=== PATIENT | female | born 1995 | race Caucasian/White ===

== ENCOUNTER 2018-07-05 15:55 | Observation (INO) ==
[2018-07-05 17:01] LABS: Amphetamine Screen,Urine Negative ng/mL (Cutoff=1000); Barbiturate Screen,Urine Negative ng/mL (Cutoff=200); Benzodiazepines Screen,Urine Negative ng/mL (Cutoff=200); Cannabinoid Screen,Urine Negative ng/mL (Cutoff = 50); Cocaine Screen,Urine Negative ng/mL (Cutoff= 300); Opiate Screen,Urine Negative ng/mL (Cutoff=300); Phencyclidine Screen,Urine Negative ng/mL (Cutoff=25)
--- NOTE | 2018-07-05 21:26 | OB/GYN Progress Note ---
Date of Encounter: 07/05/18 Time of Encounter: 18:40 - Assessment and Plan (1) 38 weeks gestation of Current Visit: Yes Status: Acute (2) False labor after 37 weeks of gestation without delivery Current Visit: Yes Status: Acute Patient was seen and evaluated by RN. No change from exam earlier today. Allowed to ambulate with re-exam in 1 hour and still no cervical change. FHTs category 1 and reactive. Discharged home. Objective - Vital Signs Vital Signs: Intake and Output 07/05/18 07/05/18 07/05/18 07:59 15:59 23:59 Other: Weight 65.8 kg Patient Weight 07/05/18 23:59 Weight 65.8 kg
== END 2018-07-05 18:41 | disposition home or self-care (01) ==
LOC: 1NENULAB
PROVIDERS: ADMIT Advanced Practice Midwife; ATTEND Advanced Practice Midwife

== ENCOUNTER 2018-07-07 16:54 | Observation (INO) ==
[2018-07-07 18:07] LABS: Amphetamine Screen,Urine Negative ng/mL (Cutoff=1000); Barbiturate Screen,Urine Negative ng/mL (Cutoff=200); Benzodiazepines Screen,Urine Negative ng/mL (Cutoff=200); Cannabinoid Screen,Urine Negative ng/mL (Cutoff = 50); Cocaine Screen,Urine Negative ng/mL (Cutoff= 300); Opiate Screen,Urine Negative ng/mL (Cutoff=300); Phencyclidine Screen,Urine Negative ng/mL (Cutoff=25)
--- NOTE | 2018-07-07 21:39 | OB/GYN Progress Note ---
Date of Encounter: 07/07/18 Time of Encounter: 21:36 - Assessment and Plan (1) 38 weeks gestation of Current Visit: No Status: Acute NST reactive, FHR baseline 145 bpm. Discharge home with precautions. (2) False labor after 37 weeks of gestation without delivery Current Visit: No Status: Acute Cervix unchanged after 3-4 hours . Discharged home with precautions. Subjective - Subjective Principal diagnosis: Contractions Interval history: A 23 y/o at 38w6d presented with c/o contractions that began at 1pm. Denies LOF or VB. Reports good FM. Antepartum ROS: new complaints, movement normal, contractions, no loss of fluid, no vaginal bleeding Objective - Vital Signs Vital Signs: Intake and Output 07/07/18 07/07/18 07/07/18 07:59 15:59 23:59 Other: Weight 519.817 kg Patient Weight 07/07/18 23:59 Weight 519.817 kg - Exam FHR: category 1 FHR comments: NST reactive, FHR baseline 145bpm Auscultation: bilateral: normal Abdomen: Present: soft, gravid Cervical dilation: 4cm Cervix effacement: 80% station: -1 Comments: Cervix unchanged after 3-4 hours.
== END 2018-07-07 21:35 | disposition home or self-care (01) ==
LOC: 1NENULAB
PROVIDERS: ADMIT Registered Nurse; ATTEND Registered Nurse

== ENCOUNTER 2018-07-12 05:47 | Inpatient (IN) ==
[2018-07-12] MEDS ORDERED: Lidocaine -MPF 1% 5 ML AMPUL INFILT PRN (05:52)
[2018-07-12] MEDS ORDERED: Famotidine 20 MG/2 ML VIAL IVP PRN (05:52)
[2018-07-12] MEDS ORDERED: Metoclopramide 10 MG/2 ML VIAL IVP PRN (05:52)
[2018-07-12] MEDS ORDERED: Ondansetron 4 MG/2 ML VIAL IVP PRN (05:52)
[2018-07-12] MEDS ORDERED: Naloxone 0.4 MG/ML INJ IVP PRN (05:52)
[2018-07-12] MEDS ORDERED: *HR* Nalbuphine 10 MG/ML AMPUL IVP PRN (05:52)
[2018-07-12] MEDS ORDERED: Ringers Solution, Lactated 1,000 ML IVC SCH (06:00)
--- NOTE | 2018-07-12 06:23 | OB/GYN History & Physical ---
Date of Encounter: 07/12/18 Time of Encounter: 06:17 Assessment and Plan (1) 39 weeks gestation of Current visit: Yes Status: Acute (2) Spontaneous onset of labor Current visit: Yes Status: Acute Admit to labor and delivery Nubain and epidural as desired GBS negative Anticipate History of Present Illness Chief complaint: contractions HPI: Ms. Rowe is a 23 year old female 39+4 days gestation presents to triage with complaints of contractions since 3 AM. Patient reports good movement, denies vaginal bleeding or leaking of fluid. care with Dr. Mendez, complicated with asthma, uses inhaler 2-3 times a week last 2 days ago, and genital herpes, patient on Valtrex. Labs: A+, rubella and varicella immune, GBS negative, all other serologies negative Past Med Surg Social Fam HX - Past Medical History Medical history: asthma, migraine Psychiatric history: anxiety, depression, other - Past Surgical History Surgical History: other Additional surgical history: reconstruction on right shoulder - Social History Smoking Status: Current every day smoker Packs per day: half Smokeless Tobacco Status: No Alcohol use: none Drug use: none - Family History Sister Family Member Ethnicity: Non- Living Status: Still Living Hx Family Cardiac Disorders: No Hx Family Respiratory Disorders: No Hx Family Cancer: No Hx Family GI Disorders: No Hx Family Endocrine Disorder: No Hx Family Neuromuscular Disorders: No Hx Family Neurologic Disorders: No Hx Family HEENT Disorders: No Hx Family Autoimmune Disorders: No Mother Living Status: Still Living Hx Family Cardiac Disorders: Yes (HTN) Hx Family Respiratory Disorders: No Hx Family Cancer: No Hx Family GI Disorders: No Hx Family Genitourinary Disorders: No Hx Family Endocrine Disorder: Yes (DM) Hx Family Musculoskeletal Disorders: No Hx Family Neuromuscular Disorders: No Hx Family Neurologic Disorders: No Hx Family HEENT Disorders: No Hx Family Autoimmune Disorders: No Hx Family Reproductive Disorders: No Hx Family Psychosocial Disorders: No Hx Family Medical Disorders: No Obstetrical History - Pregnancies : 2 Para: 1 Term: 1 : 0 Ab's: 0 Livin Medications and Allergies Paxil 20 mg PO DAILY 07/07/18 [History] 3 Allergy/AdvReac Type Severity Reaction Status Date / Time Amoxicillin Allergy Hives Verified 07/05/18 16:16 Cefaclor [From Ceclor] Allergy Hives Verified 07/05/18 16:16 Cefprozil [From Cefzil] Allergy Hives Verified 07/05/18 16:16 Erythromycin Base Allergy Hives Verified 07/05/18 16:16 [From E-Mycin] Exam - Constitutional Constitutional: well developed, well nourished, no acute distress, average body habitus - Neck Neck exam: full ROM - Lungs Respiratory exam: CTAB - Cardiovascular Cardiovascular exam: RRR - Abdomen Abdomen: Present: gravid, non tender - Extremities Extremities exam: normal capillary refill, normal inspection - Cervix Dilation: 5 Effacement: 100 Station: -1 - Anus/Rectum Anus/Rectum: Present: normal perianal skin Results All other labs normal. - VTE Reasons for not Prescribing Prophylaxis: Treatment not Indicated - Low risk for VTE
[2018-07-12 06:29] LABS: Basophils # 0.1 K/mcL (0.0-0.2); Basophils % 0.3 %; Eosinophils # 0.1 K/mcL (0.0-0.6); Eosinophils % 0.6 %; Hematocrit 32.8 % (35.3-44.9); Immature Granulocytes % 0.6 % (0-4); Lymphocytes # 4.9 K/mcL (0.6-4.6); Lymphocytes % 22.8 %; Mean Corpuscular HGB Conc 33.5 g/dL (31.6-35.5); Mean Corpuscular Hemoglobin 30.9 pg (28.0-33.3); Mean Corpuscular Volume 92.1 fL (83.0-100.0); Mean Platelet Volume 10.8 fL (9.4-12.4); Monocytes # 1.2 K/mcL (0.0-1.3); Monocytes % 5.4 %; Platelet Count 265 K/mcL (140-400); Red Blood Count 3.56 M/mcL (3.82-4.97); Segmented Neutrophils % 70.3 %
[2018-07-12 06:31] LABS: Amphetamine Screen,Urine Negative ng/mL (Cutoff=1000); Barbiturate Screen,Urine Negative ng/mL (Cutoff=200)
[2018-07-12 06:32] LABS: Benzodiazepines Screen,Urine Negative ng/mL (Cutoff=300); Cannabinoid Screen,Urine Negative ng/mL (Cutoff = 50); Cocaine Screen,Urine Negative ng/mL (Cutoff= 300); Opiate Screen,Urine Negative ng/mL (Cutoff=300); Phencyclidine Screen,Urine Negative ng/mL (Cutoff=25)
[2018-07-12] MEDS ORDERED: Epidural Premix (fent/bupiv) 110 ML EP SCH (06:45)
[2018-07-12] MEDS ORDERED: Lidocaine 1% 20 ML MDV ONE (07:04)
[2018-07-12] MEDS ORDERED: Bupivacaine-MPF 0.25% 10 ML VIAL ONE (07:19)
[2018-07-12] MEDS ORDERED: *HR* FentaNYL (PF) 100 MCG/2 ML VIAL ONE (07:19)
--- NOTE | 2018-07-12 08:00 | Anesthesia Evaluation PreOp ---
Date of Encounter: 07/12/18 Time of Encounter: 06:55 - Past History Planned Operation: RAMO Cardiac History: Denies any Significant Hx Pulmonary History: Smoker, Pack/yr (5pk/yr) WORLD LANGUAGE TEACHER History: Denies Any Significant HX Other Medical History: Denies Any Significant HX, Other (anxiety, depression, herpes, HPV) Anesthesia History: No Prior Anesthetic Complications, Past Anesthesia ( reconstructive shoulder surgery) : Yes Alcohol Use: none Drug use: none Medications and Allergies Paxil 20 mg PO DAILY 07/07/18 [History] valACYclovir [Valtrex] 500 mg PO DAILY 07/12/18 [History] 3 Allergy/AdvReac Type Severity Reaction Status Date / Time Amoxicillin Allergy Hives Verified 07/05/18 16:16 Cefaclor [From Ceclor] Allergy Hives Verified 07/05/18 16:16 Cefprozil [From Cefzil] Allergy Hives Verified 07/05/18 16:16 Erythromycin Base Allergy Hives Verified 07/05/18 16:16 [From E-Mycin] - Meds/Allergy Pre-op Review Medications Reviewed: Yes Allergies Reviewed: Yes Beta Blockers on Current Med List: No Anesthesia Results - Labs 07/12/18 06:00 Anesthesia Exam BP 131/90 P 85 R 18 T 97.1 Height: 5'5" Weight: 65.8kg NPO (# of Hours): 11 Pain Scale: 7 Pain Scale Used: Numeric (1 - 10) - HEENT Pupil (Motor): Pupils equal Mallampati: II Teeth: Normal Oral Opening: Greater than 3 - WORLD LANGUAGE TEACHER LOC: Oriented WORLD LANGUAGE TEACHER Motor: Normal RUE, Normal LUE, Normal RLE, Normal LLE, Normal Face WORLD LANGUAGE TEACHER Sensory: Normal: RUE, LUE, RLE, LLE, Face - Cardiac Rhythm: Regular Murmur: None JVD: No Carotid Bruit: No - Pulmonary Breath Sounds: bilateral Clear Respiratory Effort: Symmetrical Anesthesia Assess/Plan ASA Score: 2 Modified Turrell Scale for Level of Consciousness: Cooperative, oriented, and tranquil Anesthetic Plan: Regional Autologous Blood: No Monitoring Plan: Standard Monitors Recovery Plan: Other
--- NOTE | 2018-07-12 08:12 | Anesthesia Procedures ---
Date of Encounter: 07/12/18 Time of Encounter: 06:55 Procedures: Anesthesia - Epidural/Spinal Patient ID/Chart reviewed: Yes Patient examined: Yes OB Eval: Gestational age: 39.4 OB Eval: : 2 OB Eval: Hx Para: 1 OB Eval: Dilated at (cm): 7 OB Eval: Contractions: Non-stressed pattern Consent Obtained: Yes Supplemental Oxygen: None/Room Air Site Prep: Aseptic Technique, Sterile prep and drape, Povidone-Iodine 1% Patient position: upright Local Anesthetic: Lidocaine 1% Amount of Local Anesthetic used: 3 Touhy Needle Gauge: 18 Touhy Needle Depth (cm): 5 Test Dose (1.5% Lido + Epi): Volume given (mls): 3 Test Dose Result: Negative Loading Dose: 0.25% Marcaine (mls): 7 Loading Dose: Fentanyl (mcg): 100 Loading Dose Administered: Thru Catheter Infusion Med: 0.125% Bupivacaine w/ 2 mcg/ml Fentanyl Infusion Rate (mls/hr): [address]: Tegaderm, Tape Interspace Used: L3-L4 Loss of Resistance (KAROLINE): Yes Blood: No CSF: No Paresthesia: No Procedure: RAMO placed 1st pass in upright position without any immediate noted complications. VSS and FHT stable throughout.
[2018-07-12] MEDS ORDERED: Oxytocin 20 units/ LR 1000 mL 20 UNIT/1,000 ML BAG IVC ONE (08:50)
--- NOTE | 2018-07-12 08:53 | OB Labor Progress Note ---
Date of Encounter: 07/12/18 Time of Encounter: 08:51 Labor Progress Note - Subjective Subjective: Patient comfortable after the epidural, but experiencing some nausea. - Cervix Cervix: 9/100/0 cephalic - Heart Tones Heart Tones: baseline 130, category 1 prior to AROM. Since AROM 2 contractions with variable decels noted. Good return to baseline and beat to beat variability - Vevay Vevay: q 3 minutes - Interventions Interventions: AROM with moderate amount of clear fluid noted - Plan Plan: Expectant management with EFM in anticipation of vaginal delivery. Repositioning as needed
--- NOTE | 2018-07-12 09:40 | OB/GYN Procedure Note ---
Delivery - Delivery Date: 07/12/18 Provider: Dianne Mendez Intrapartum events: none Delivery augmentation: rupture of membranes Delivery monitor: external FHT, external uterine Anesthesia: epidural Quantitated Blood Loss: 200 - Infant (s) A Delivery Date: 07/12/18 Delivery Time: 09:15 Presentation: vertex Position: KEVIN Route of delivery: Gender: Female Viability: Viable Pounds: 5 Ounces: 14 at 1 minute: 9 at 5 mins: 9 Shoulder Dystocia: not encountered Placenta: spontaneous Cord: nuchal cord, 3 umbilical vessels, delivered through nuchal - Repair Episiotomy: none Laceration Description: Periurethral, Labial (anterior) - Complications Delivery complications: none Delivery comments: Called to room with patient complete and +2 station. Under maternal effort she delivered a viable female weighing 5 lbs. 14 oz. and Apgars 9 and 9 at one and 5 minutes respectively over an intact perineum. Following delivery of the head and nuchal cord was noted that she delivered through. No shoulder dystocia was encountered. Following delivery of the the nuchal was reduced and the infant was placed on mom's abdomen vigorous and crying. Evaluation of the labia reveals a periurethral laceration as well as an anterior labial. Both lacerations were reapproximated using 3-0 Monocryl in an interrupted fashion. Hemostasis is assured. The cord was allowed to cease pulsations and then was double clamped and cut with assistance from the father of the baby. Placenta delivered spontaneously, complete, and intact with a three-vessel cord. There were no perineal, vagianl, or cervical lacerations on exam. Mother and infant are recovering in the LDR in stable condition. - Disposition Mom disposition: stable in LDR disposition: stable in LDR
[2018-07-12] MEDS ORDERED: Ibuprofen 600 MG TABLET PO PRN (12:12)
[2018-07-12] MEDS ORDERED: Oxytocin 20 units/ LR 1000 mL 20 UNIT/1,000 ML BAG IVC SCH (12:12)
[2018-07-12] MEDS ORDERED: Acetaminophen 325 MG TABLET PO PRN (12:12)
[2018-07-13 07:20] LABS: Basophils # 0.1 K/mcL (0.0-0.2); Basophils % 0.5 %; Eosinophils # 0.2 K/mcL (0.0-0.6); Eosinophils % 1.4 %; Hematocrit 32.5 % (35.3-44.9); Hemoglobin 10.8 g/dL (11.5-15.4); Immature Granulocytes % 0.4 % (0-4); Lymphocytes # 5.1 K/mcL (0.6-4.6); Lymphocytes % 32.6 %; Mean Corpuscular HGB Conc 33.2 g/dL (31.6-35.5); Mean Corpuscular Hemoglobin 31.1 pg (28.0-33.3); Mean Corpuscular Volume 93.7 fL (83.0-100.0); Mean Platelet Volume 10.3 fL (9.4-12.4); Monocytes # 0.9 K/mcL (0.0-1.3); Monocytes % 5.7 %; Neutrophils # 9.3 K/mcL (1.6-8.9); Platelet Count 259 K/mcL (140-400); Red Blood Count 3.47 M/mcL (3.82-4.97); Red Cell Distribution Width 13.2 % (11.5-14.5); Segmented Neutrophils % 59.4 %
[2018-07-13] MEDS ORDERED: Prenatal Vit/FA 1 EACH TABLET PO SCH (09:00)
[2018-07-13] MEDS ORDERED: valACYclovir 500 MG TABLET PO SCH (09:00)
--- NOTE | 2018-07-13 09:18 | Discharge Summary ---
Date of Encounter: 07/13/18 Time of Encounter: 09:21 - Discharge Diagnosis (1) Status post normal vaginal delivery Priority: Primary Status: Acute Comments: Eating and drinking well. No BM yet. Feeling cramping and has some small vaginal bleeding. Pain well controlled with motrin. Bottle feeding. Mood is good. Stable for discharge. Follow up with Dr. Mendez in 4 weeks. (2) Depression Priority: Secondary Status: Acute Comments: On paxil 20mg prior to delivery. Will continue in period. Rx given today. Warning signs of PPD given. Qualifiers: Depression Type: unspecified Qualified Code(s): F32.9 - Major depressive disorder, single episode, unspecified - Discharge Medications Prescriptions: Ibuprofen [Motrin] 600 mg PO Q6HR PRN 7 Days #28 tablet PRN Reason: Cramping Docusate [Colace] 100 mg PO BID 30 Days #60 capsule Paroxetine [Paxil] 20 mg PO DAILY 30 Days #30 tablet Paroxetine 20 mg PO DAILY 30 Days #30 Home Medications: valACYclovir [Valtrex] 500 mg PO DAILY 07/12/18 [History] Docusate [Colace] 100 mg PO BID 30 Days #60 capsule 07/13/18 [Rx] Ibuprofen [Motrin] 600 mg PO Q6HR PRN 7 Days #28 tablet 07/13/18 [Rx] Paroxetine 20 mg PO DAILY 30 Days #30 07/13/18 [Rx] Paroxetine [Paxil] 20 mg PO DAILY 30 Days #30 tablet 07/13/18 [Rx] Vit/FA 1 each PO DAILY tablet 07/13/18 [Rx] Allergies/Adverse Reactions: 3 Allergy/AdvReac Type Severity Reaction Status Date / Time Amoxicillin Allergy Hives Verified 07/05/18 16:16 Cefaclor [From Ceclor] Allergy Hives Verified 07/05/18 16:16 Cefprozil [From Cefzil] Allergy Hives Verified 07/05/18 16:16 Erythromycin Base Allergy Hives Verified 07/05/18 16:16 [From E-Mycin] Data Procedures and tests throughout hospitalization: Laboratory Tests 07/12/18 07/12/18 07/13/18 06:00 06:11 07:09 WBC 21.3 H 15.6 H RBC 3.56 L 3.47 L Hgb 11.0 L 10.8 L Hct 32.8 L 32.5 L MCV 92.1 93.7 MCH 30.9 31.1 MCHC 33.5 33.2 RDW 13.0 13.2 Plt Count 265 259 MPV 10.8 10.3 Immature Gran % 0.6 0.4 Seg Neutrophils % 70.3 59.4 Lymphocytes % 22.8 32.6 Monocytes % 5.4 5.7 Eosinophils % 0.6 1.4 Basophils % 0.3 0.5 Neutrophils # 15.0 H 9.3 H Lymphocytes # 4.9 H 5.1 H Monocytes # 1.2 0.9 Eosinophils # 0.1 0.2 Basophils # 0.1 0.1 Urine Opiates Screen Negative Ur Barbiturates Screen Negative Ur Phencyclidine Scrn Negative Ur Amphetamines Screen Negative U Benzodiazepines Scrn Negative Urine Cocaine Screen Negative U Marijuana (THC) Screen Negative Ur Drug Screen Interp See Below Labs on day of discharge: Labs from last 24 hours 07/13/18 07:09 WBC 15.6 H RBC 3.47 L Hgb 10.8 L Hct 32.5 L MCV 93.7 MCH 31.1 MCHC 33.2 RDW 13.2 Plt Count 259 MPV 10.3 Immature Gran % 0.4 Seg Neutrophils % 59.4 Lymphocytes % 32.6 Monocytes % 5.7 Eosinophils % 1.4 Basophils % 0.5 Neutrophils # 9.3 H Lymphocytes # 5.1 H Monocytes # 0.9 Eosinophils # 0.2 Basophils # 0.1 Date of admission: 07/12/18 05:47 Primary care physician: Coleen Patel CNP Consults: 07/12/18 12:12 Consult to Tax Credit Leasing Consultant [CONS] Routine Comment: Vaginal delivery, consult needed Discharging clinician: Barbara Torres Anticipated date of discharge: 07/13/18 - Patient Status Disposition: Home, Self-Care Condition: Good Functional capacity at discharge: independent ambulation Overall status at discharge: patient is progressing back to baseline - Discharge Instructions Follow Up With: Coleen Patel CNP [Primary Care Provider] - Dianne Mendez DO [Partnered Physician] - Additional Instructions: - Follow up with Dr. Mendez in 4 weeks for reevaluation. - Take ibuprofen 600mg every 6 hours as needed for pain and cramping. Take docusate for stool softening and drink plenty of water. - Nothing vaginally for the next 6 weeks to continue to heal. Discuss control options at your next appointment with Dr. Mendez. - Continue paxil for depression and contact the office should you develop any thoughts of harming yourself or others, feelings of worthlessness or helplessness, or thinking your family would be better off without you. - Call the office should you develop any significant vaginal bleeding or passing large clots. - Diet and Activity Activity: increase activity as tolerated Diet: advance to your usual diet Hospital Course INFORMATION TECHNOLOGY ASSISTANT Hospital course: Ms. Rowe is a 23 year old female delivered at 39+4 days gestation. care with Dr. Mendez, complicated with asthma, uses inhaler 2- 3 times a week last 2 days ago, and genital herpes, patient on Valtrex. Labs: A+, rubella and varicella immune, GBS negative, all other serologies negative. Normal course. Delivery - Delivery Date: 07/12/18 Provider: Dianne Mendez Intrapartum events: none Delivery augmentation: rupture of membranes Delivery monitor: external FHT, external uterine Anesthesia: epidural Quantitated Blood Loss: 200 - (s) Infant A Infant Delivery Date: 07/12/18 Delivery Time: 09:15 Presentation: vertex Position: KEVIN Route of delivery: Gender: Female Viability: Viable Pounds: 5 Ounces: 14 at 1 minute: 9 at 5 mins: 9 Shoulder Dystocia: not encountered Placenta: spontaneous Cord: nuchal cord, 3 umbilical vessels, delivered through nuchal - Repair Episiotomy: none Laceration Description: Periurethral, Labial (anterior) - Complications Delivery complications: none Delivery comments: Called to room with patient complete and +2 station. Under maternal effort she delivered a viable female weighing 5 lbs. 14 oz. and Apgars 9 and 9 at one and 5 minutes respectively over an intact perineum. Following delivery of the head and nuchal cord was noted that she delivered through. No shoulder dystocia was encountered. Following delivery of the infant the nuchal was reduced and the infant was placed on mom's abdomen vigorous and crying. Evaluation of the labia reveals a periurethral laceration as well as an anterior labial. Both lacerations were reapproximated using 3-0 Monocryl in an interrupted fashion. Hemostasis is assured. The cord was allowed to cease pulsations and then was double clamped and cut with assistance from the father of the baby. Placenta delivered spontaneously, complete, and intact with a three-vessel cord. There were no perineal, vagianl, or cervical lacerations on exam. Mother and infant are recovering in the LDR in stable condition. Time spent discussing smoking cessation with patient: 3 to 10 minutes Time Attestation: Total time spent providing and/or coordinating discharge services: Time Spent: Less than 30 minutes Exam - Constitutional Vitals: Temp Pulse Resp BP Pulse Ox 98.4 F 78 12 117/73 97 07/13/18 04:15 07/13/18 04:15 07/13/18 04:15 07/13/18 04:15 07/13/18 04:15 General appearance IM: cooperative, A&O X 3, pleasant, no acute distress, answers questions appropriately - Respiratory Respiratory exam: Present: CTAB. Absent: wheezes, tachypnea - Cardiovascular Cardiovascular exam IM: Present: RRR, +S1, +S2 - GI/Abdominal GI/Abdominal exam IM: soft - Uterine Tone: Firm Uterus Position: At Umbilicus, Midline - Extremities Exam Extremities exam IM: Present: normal capillary refill. Absent: calf tenderness - Neurological Exam Neurological exam: alert, normal gait, oriented X3 - Psychiatric Additional comments: Patient states mood is good today - VTE Reasons for not Prescribing Prophylaxis: Treatment not Indicated - Low risk for VTE
[2018-07-13 11:39] VITALS: BP 131/95
== END 2018-07-13 10:55 | disposition home or self-care (01) | DRG 560 ==
LOC: 1NENULAB 05:47 → 1NENUOBS 12:12
PROVIDERS: ADMIT Obstetrics & Gynecology; ATTEND Obstetrics & Gynecology

== ENCOUNTER 2020-04-16 09:28 | Inpatient (IN) ==
[2020-04-16] MEDS ORDERED: Naloxone 0.4 MG/ML INJ IVP PRN (10:12)
[2020-04-16] MEDS ORDERED: *HR* FentaNYL (PF) 100 MCG/2 ML VIAL IVP PRN (10:12)
[2020-04-16] MEDS ORDERED: Metoclopramide 10 MG/2 ML VIAL IVP PRN (10:12)
[2020-04-16] MEDS ORDERED: Famotidine 20 MG/2 ML VIAL IVP PRN (10:12)
[2020-04-16] MEDS ORDERED: Ondansetron 4 MG/2 ML VIAL IVP PRN (10:12)
[2020-04-16] MEDS ORDERED: Oxytocin 20 units/ LR 1000 mL 20 UNIT/1,000 ML BAG IVC SCH ×2 (10:15→20:26)
[2020-04-16] MEDS ORDERED: Ringers Solution, Lactated 1,000 ML IVC SCH (10:15)
[2020-04-16 11:08] LABS: Basophils % 0.2 %; Eosinophils # 0.1 K/mcL (0.0-0.6); Eosinophils % 0.8 %; Hematocrit 36.3 % (35.3-44.9); Hemoglobin 11.5 g/dL (11.5-15.4); Immature Granulocytes % 0.5 % (0-4); Lymphocytes # 1.8 K/mcL (0.6-4.6); Lymphocytes % 21.9 %; Mean Corpuscular HGB Conc 31.7 g/dL (31.6-35.5); Mean Corpuscular Hemoglobin 30.4 pg (28.0-33.3); Mean Platelet Volume 10.7 fL (9.4-12.4); Monocytes # 0.4 K/mcL (0.0-1.3); Monocytes % 5.1 %; Neutrophils # 5.9 K/mcL (1.6-8.9); Platelet Count 221 K/mcL (140-400); Red Blood Count 3.78 M/mcL (3.82-4.97); Red Cell Distribution Width 13.2 % (11.5-14.5); Segmented Neutrophils % 71.5 %; White Blood Count 8.3 K/mcL (4.3-11.1)
[2020-04-16 11:13] LABS: Amphetamine Screen,Urine Negative ng/mL (Cutoff=1000); Barbiturate Screen,Urine Negative ng/mL (Cutoff=200); Benzodiazepines Screen,Urine Negative ng/mL (Cutoff=200); Cannabinoid Screen,Urine Negative ng/mL (Cutoff = 50); Cocaine Screen,Urine Negative ng/mL (Cutoff= 300); Opiate Screen,Urine Negative ng/mL (Cutoff=300); Phencyclidine Screen,Urine Negative ng/mL (Cutoff=25)
[2020-04-16] MEDS ORDERED: *HR* FentaNYL (PF) 100 MCG/2 ML VIAL EP ONE (14:48)
[2020-04-16] MEDS ORDERED: EPHEDrine 50 MG/ML VIAL IVP PRN (14:48)
[2020-04-16] MEDS ORDERED: Ropivacaine/PF 0.2% 20 ML VIAL EP ONE (14:48)
[2020-04-16] MEDS ORDERED: Ropivacaine/PF 0.2% 20 ML VIAL ONE (14:50)
[2020-04-16] MEDS ORDERED: *HR* FentaNYL (PF) 100 MCG/2 ML VIAL ONE (14:50)
[2020-04-16] MEDS ORDERED: Epidural Premix (fent/bupiv) 110 ML EP SCH (15:00)
[2020-04-16] MEDS ORDERED: Lanolin 7 G OINT...G. TP PRN (20:26)
[2020-04-16] MEDS ORDERED: Acetaminophen 325 MG TABLET PO PRN (20:26)
[2020-04-16] MEDS ORDERED: Benzocaine/Menthol 56 GM AEROSOL SPRAY TP PRN (20:26)
[2020-04-16] MEDS ORDERED: Ibuprofen 600 MG TABLET PO PRN (20:26)
[2020-04-17 09:17] LABS: Basophils # 0.1 K/mcL (0.0-0.2); Basophils % 0.5 %; Eosinophils # 0.1 K/mcL (0.0-0.6); Hematocrit 39.8 % (35.3-44.9); Hemoglobin 12.9 g/dL (11.5-15.4); Immature Granulocytes % 0.4 % (0-4); Lymphocytes # 2.3 K/mcL (0.6-4.6); Lymphocytes % 23.5 %; Mean Corpuscular HGB Conc 32.4 g/dL (31.6-35.5); Mean Corpuscular Volume 95.7 fL (83.0-100.0); Monocytes # 0.5 K/mcL (0.0-1.3); Monocytes % 4.8 %; Neutrophils # 6.8 K/mcL (1.6-8.9); Platelet Count 203 K/mcL (140-400); Red Blood Count 4.16 M/mcL (3.82-4.97); Red Cell Distribution Width 13.1 % (11.5-14.5); Segmented Neutrophils % 69.8 %; White Blood Count 9.7 K/mcL (4.3-11.1)
[2020-04-17] MEDS: Prenatal Vit/FA 1 EACH TABLET PO SCH (09:17)
[2020-04-18 08:35] VITALS: BP 133/89
[2020-04-18] MEDS: Prenatal Vit/FA 1 EACH TABLET PO SCH (08:56)
== END 2020-04-18 13:27 | disposition home or self-care (01) | DRG 560 ==
LOC: 1NENULAB 09:28 → 1NENUOBS 20:19
PROVIDERS: ADMIT Obstetrics & Gynecology; ATTEND Obstetrics & Gynecology